=== PATIENT | male | born 1985 | race Two or more races ===

== ENCOUNTER 2020-01-19 01:07 | Inpatient (IN) ==
[2020-01-19] MEDS ORDERED: NS 1000 ML 1,000 ML ONE (01:20)
--- NOTE | 2020-01-19 01:28 | DR.GENAD ---
HPI Time Seen Time Seen by Provider: 01/19/20 01:23 HPI Comment HPI Comment: 34 y/o speaking little to no Egyptian with h/o obtained through pantomime mostly reports sudden onset of n/v/chest pain earlier today with fever; no diarrhea, cough, sob; last etoh Wednesday but unable to establish how often he drinks or how much; occasional pill for headache but no other meds; no cigarettes. ROS Review of Systems Constitutional: See HPI and Weakness Respiratoy: No Symptoms Reported Cardiovascular: See HPI Gastrointestinal/Abdominal: See HPI Genitourinary: No Symptoms Reported Neurological: No Symptoms Reported Musculoskeletal: No Symptoms Reported Integumentary: No Symptoms Reported Hematologic/Lymphatic: No Symptoms Reported Endocrine: No Symptoms Reported PE Vital Signs Vitals: Temperature 98.4 F Pulse Rate 70 Respiratory Rate 20 Blood Pressure 136/76 O2 Sat by Pulse Oximetry 98 General Limitations: Language Barrier General Appearance: Alert and In No Apparent Distress Head Head Exam: Normal Inspection, Atraumatic and Normocephalic Eyes Eye exam: Normal Appearance, PERRL, EOMI and Scleral Icterus ENT ENT Exam: Normal Exam Neck Neck Exam: Normal Inspection, Full ROM and Trachea Midline Chest Chest Inspection: Normal Inspection and Symmetric Chest Wall Rise Respiratory Respiratory Exam: Normal Lung Sounds Bilat Cardiovascular Cardiovascular Exam: Regular Rate and Normal Rhythm Abdominal Exam Abdominal Exam: Normal Inspection, Normal Bowel Sounds, Soft and Tenderness Abdominal Tenderness: Epigastrium Extremities Extremities Exam: Normal Inspection and Full ROM Neurologic Neurological Exam: Alert, Oriented X3 and CN II-XII Intact Psychiatric Psychiatric Exam: Normal Affect and Normal Mood Skin Skin Exam: Warm COURSE Treatment Treatment: [address] Mehta ROR Labs Reviewed Laboratory Results Reviewed?: Yes Result Diagrams: 01/21/20 04:18 01/21/20 04:18 Laboratory: WBC 8.8 X10^3/uL (3.6-10.0) 01/19/20 01:30 RBC 3.50 X10^6/uL (4.7-6.0) L 01/19/20 01:30 Hgb 11.6 g/dL (13.5-18.0) L 01/19/20 01:30 Hct 33.3 % (42.0-54.0) L 01/19/20 01:30 MCV 95.1 fL (80.0-100.0) 01/19/20 01:30 MCH 33.1 pg (27.0-34.0) 01/19/20 01:30 MCHC 34.8 g/dL (33.0-35.0) 01/19/20 01:30 RDW 14.4 % (11.6-16.5) 01/19/20 01:30 Plt Count 69 X10^3/uL (150.0-450.0) L 01/19/20 01:30 MPV 9.4 fL (7.4-11.0) 01/19/20 01:30 Neut % (Auto) 77.2 % (42.0-75.0) H 01/19/20 01:30 Lymph % (Auto) 14.5 % (21.0-51.0) L 01/19/20 01:30 [place] % (Auto) 6.8 % (0.0-13.0) 01/19/20 01:30 Eos % (Auto) 0.8 % (0.9-2.9) L 01/19/20 01:30 Baso % (Auto) 0.7 % (0.2-1.0) 01/19/20 01:30 Neut # (Auto) 6.8 x10^3/uL (2.2-4.8) H 01/19/20 01:30 Lymph # (Auto) 1.3 X10^3/uL (1.3-2.9) 01/19/20 01:30 [place] # (Auto) 0.6 x10^3/uL (0.3-0.8) 01/19/20 01:30 Eos # (Auto) 0.1 x10^3/uL (0.0-0.2) 01/19/20 01:30 Baso # (Auto) 0.1 X10^3/uL (0.0-0.1) 01/19/20 01:30 Absolute Nucleated RBC 0.0 /100WBC 01/19/20 01:30 Sodium 135 mmol/L (136-145) L 01/19/20 01:30 Corrected Sodium 135 mmol/L (136-145) L 01/19/20 01:30 Potassium 3.1 mmol/L (3.5-5.1) L 01/19/20 01:30 Chloride 97 mmol/L (98-107) L 01/19/20 01:30 Carbon Dioxide 28.5 mmol/L (21-32) 01/19/20 01:30 BUN 7 mg/dL (7-18) 01/19/20 01:30 Creatinine 0.98 mg/dL (0.70-1.30) 01/19/20 01:30 Est GFR (MDRD) Af Amer > 60 (>60) 01/19/20 01:30 Est GFR (MDRD) Non-Af > 60 (>60) 01/19/20 01:30 Glucose 111 mg/dL (65-99) H 01/19/20 01:30 Calcium 8.3 mg/dL (8.5-10.1) L 01/19/20 01:30 Corrected Calcium 9.3 mg/dL (8.5-10.1) 01/19/20 01:30 Total Bilirubin 7.30 mg/dL (0.2-1.0) H 01/19/20 01:30 AST 121 Units/L (15-37) H 01/19/20 01:30 ALT 63 Units/L (12-78) 01/19/20 01:30 Alkaline Phosphatase 341 Units/L (46-116) H 01/19/20 01:30 Creatine Kinase 130 Units/L (39-308) 01/19/20 01:30 CK-MB (CK-2) 1.0 ng/mL (0-4.0) 01/19/20 01:30 CK/CKMB % Calc 0.8 % (<4) 01/19/20 01:30 Troponin I < 0.02 ng/mL (0-1.5) 01/19/20 01:30 Total Protein 6.9 g/dL (6.4-8.2) 01/19/20 01:30 Albumin 2.7 g/dL (3.4-5.0) L 01/19/20 01:30 Globulin 4.2 g/dL (2.5-4.5) 01/19/20 01:30 Albumin/Globulin Ratio 0.6 Ratio (1.1-2.1) L 01/19/20 01:30 Amylase 79 Units/L (25-115) 01/19/20 01:30 Lipase 804 Units/L (73-393) H 01/19/20 01:30 Specimen Type Clean catch urine 01/19/20 08:05 Urine Color Yellow (YELLOW) 01/19/20 08:05 Urine Appearance Clear (CLEAR) 01/19/20 08:05 Urine pH 8.0 (5.0 - 8.0) 01/19/20 08:05 Ur Specific [place] 1.010 (1.000-1.030) 01/19/20 08:05 Urine Protein Negative (NEGATIVE) 01/19/20 08:05 Urine Glucose (UA) Negative (NEGATIVE) 01/19/20 08:05 Urine Ketones Negative (NEGATIVE) 01/19/20 08:05 Urine Occult Blood Negative (NEGATIVE) 01/19/20 08:05 Urine Nitrite Negative (NEGATIVE) 01/19/20 08:05 Urine Bilirubin Negative (NEGATIVE) 01/19/20 08:05 Urine Urobilinogen Normal (NORMAL) 01/19/20 08:05 Ur Leukocyte Esterase Negative (NEGATIVE) 01/19/20 08:05 Urine Opiates Screen Negative (NEG=<300) 01/19/20 07:58 Urine Methadone Screen Negative (NEG=<300) 01/19/20 07:58 Ur Barbiturates Screen Negative (NEG=<200) 01/19/20 07:58 Ur Phencyclidine Scrn Negative (NEG=<25) 01/19/20 07:58 Ur Amphetamines Screen Negative (NEG=<1000) 01/19/20 07:58 U Benzodiazepines Scrn Negative (NEG=<200) 01/19/20 07:58 Urine Cocaine Screen Negative (NEG=<300) 01/19/20 07:58 U Marijuana (THC) Screen Negative (NEG=<50) 01/19/20 07:58 Ethyl Alcohol mg/dL < 3 mg/dL (0-19.9) 01/19/20 01:30 Influenza Type A (PCR) Negative (NEGATIVE) 01/19/20 01:46 Influenza Type B (PCR) Negative (NEGATIVE) 01/19/20 01:46 S. pyogenes (TEM-PCR) Not detected (NOT DETECT) 01/19/20 01:46 XRAY XRAY Interpreted by: Radiologist X-ray Results: CXR: Vague tree-in-bud opacity seen in the right upper lung are not well visualized on radiography. Infection is not entirely excluded. Correlate clinically. CT ABD: Gallbladder thick-walled, concerning for cholecystitis; recommend us 2. enlarged liver with hepatic steatosis 3. distended urinary bladder Opioid Opioid Risk Tool Total: 0 Total Score Risk Category: Low Risk Copyright: Benjamín ESCAMILLA predicting aberrant behaviors Diagnosis Discharge Problem: Hypokalemia, Fatty liver, Hepatomegaly, Acute cholecystitis Pancreatitis Qualifiers: Chronicity: acute Pancreatitis type: alcohol induced Acute pancreatitis complication: no infection or necrosis Qualified Code(s): K85.20 - Alcohol induced acute pancreatitis without necrosis or infection Hematemesis Qualifiers: Nausea presence: with nausea Qualified Code(s): K92.0 - Hematemesis Instructions Instructions: Hypokalemia Acute Pancreatitis, [id number] Cholecystitis, [id number] Forms: Excuse From Work Precautions for COVID19 Patient Portal Social Distancing
[2020-01-19] MEDS ORDERED: NS 1000 ML 1,000 ML IV ONE (01:31)
[2020-01-19 01:43] LABS: BASOPHILS # (AUTO) 0.1 X10^3/uL (0.0-0.1); BASOPHILS % (AUTO) 0.7 % (0.2-1.0); EOSINOPHILS # (AUTO) 0.1 x10^3/uL (0.0-0.2); EOSINOPHILS % (AUTO) 0.8 % (0.9-2.9); HEMATOCRIT 33.3 % (42.0-54.0); HEMOGLOBIN 11.6 g/dL (13.5-18.0); LYMPHOCYTES # (AUTO) 1.3 X10^3/uL (1.3-2.9); LYMPHOCYTES % (AUTO) 14.5 % (21.0-51.0); MEAN CORPUSCULAR HEMOGLOBIN 33.1 pg (27.0-34.0); MEAN CORPUSCULAR HGB CONC 34.8 g/dL (33.0-35.0); MEAN CORPUSCULAR VOLUME 95.1 fL (80.0-100.0); MEAN PLATELET VOLUME 9.4 fL (7.4-11.0); MONOCYTES # (AUTO) 0.6 x10^3/uL (0.3-0.8); MONOCYTES % (AUTO) 6.8 % (0.0-13.0); NEUTROPHILS # (AUTO) 6.8 x10^3/uL (2.2-4.8); NEUTROPHILS % (AUTO) 77.2 % (42.0-75.0); PLATELET COUNT 69 X10^3/uL (150.0-450.0); RED CELL DISTRIBUTION WIDTH 14.4 % (11.6-16.5); WHITE BLOOD COUNT 8.8 X10^3/uL (3.6-10.0)
[2020-01-19 01:54] LABS: BLOOD UREA NITROGEN 7 mg/dL (7-18); CALCIUM 8.3 mg/dL (8.5-10.1); CARBON DIOXIDE 28.5 mmol/L (21-32); CHLORIDE 97 mmol/L (98-107); COR NA(FOR HYPERGLY) 135 mmol/L (136-145); CREATININE 0.98 mg/dL (0.70-1.30); SODIUM 135 mmol/L (136-145); TROPONIN I < 0.02 ng/mL (0-1.5); eGFR NON BLACK RACES > 60 (>60)
[2020-01-19 01:57] LABS: ALANINE AMINOTRANSFERASE 63 Units/L (12-78); ALBUMIN 2.7 g/dL (3.4-5.0); ALKALINE PHOSPHATASE 341 Units/L (46-116); AMYLASE 79 Units/L (25-115); ASPARTATE AMINO TRANSFERASE 121 Units/L (15-37); CKMB % 0.8 % (<4); COR CA(FOR HYPOALB) 9.3 mg/dL (8.5-10.1); CREATINE KINASE 130 Units/L (39-308); LIPASE 804 Units/L (73-393); TOTAL PROTEIN 6.9 g/dL (6.4-8.2)
[2020-01-19 02:24] LABS: STREP A BY PCR NOT DETECTED (NOT DETECT)
[2020-01-19] MEDS ORDERED: K-RIDER 10 MEQ/NS 100 ML 10 MEQ/100 ML BAG IV ONE (02:58)
[2020-01-19] MEDS ORDERED: ZOFRAN INJ 4 MG VIAL IV ONE (03:20)
[2020-01-19] MEDS ORDERED: MORPHINE SULFATE INJ 2 MG INJ IV ONE (03:20)
[2020-01-19] MEDS ORDERED: MORPHINE SULFATE INJ 2 MG INJ ONE (03:25)
[2020-01-19] MEDS ORDERED: ZOFRAN INJ 4 MG VIAL ONE (03:25)
[2020-01-19] MEDS ORDERED: NS + KCL 20 MEQ/L 1,000 ML IV STA (04:51)
[2020-01-19] MEDS ORDERED: NS + KCL 20 MEQ/L 1,000 ML IV ONE (05:32)
--- NOTE | 2020-01-19 05:46 | RAD ---
Chest AP portableIndication: Chest painCOMPARISONCT abdomen and pelvis from the same dayFINDINGSThere is no pneumothorax or dense consolidation. No effusion seen. Heart size is normal.IMPRESSIONVague tree-in-bud opacity seen in the right upper lung are not well visualized on radiography. Infection is not entirely excluded. Correlate clinically.Electronically signed by: STORMY PARHAM (Jan 19, 2020 05:44:48)
[2020-01-19 08:10] LABS: BILIRUBIN,URINE NEGATIVE (NEGATIVE); BLOOD/HEMOGLOBIN,URINE NEGATIVE (NEGATIVE); GLUCOSE, URINE NEGATIVE (NEGATIVE); KETONES,URINE NEGATIVE (NEGATIVE); LEUKOCYTE ESTERASE ,URINE NEGATIVE (NEGATIVE); NITRITES,URINE NEGATIVE (NEGATIVE); PROTEIN,URINE NEGATIVE (NEGATIVE); UROBILINOGEN,URINE NORMAL (NORMAL)
[2020-01-19 08:15] LABS: APPEARANCE,URINE CLEAR (CLEAR); COLOR,URINE YELLOW (YELLOW)
--- NOTE | 2020-01-19 08:24 | CT ---
HISTORYAbnormal chest x-ray, cholecystitisSTUDYCT OF THE CHEST WITH CONTRASTCOMPARISONChest x-ray portable January 19, 2020, January 19, [address] abdomen [address] pelvisTECHNIQUEAxial CT was performed from the thoracic inlet to the upper abdomen with IV contrast. The axial sequences are reconstructed with multiplaner reformats.FINDINGSThe lungs are equally expanded. There are no consolidating infiltrates. Within the right upper lobe, there are clustered subcentimeter tree-in-bud inflammatory nodular opacities. 4 mm calcified granuloma is present within the right middle lobe. The pleural spaces remain clear. Heart size is normal. There is no pericardial effusion identified. There are no enlarged mediastinal, hilar, or axillary lymph nodes of the chest. Thoracic aorta caliber is normal. There are no central filling defects associated with the main pulmonary artery, lobar or proximal segmental pulmonary artery branches.The liver is enlarged and diffusely hypoattenuated relative to the spleen consistent with hepatic steatosis. Again, the gallbladder wall appears mildly thickened. No free fluid is identified.Review of bone windows demonstrates no acute osseous abnormalities or aggressive bony lesions.IMPRESSIONClustered inflammatory tree-in-bud nodules of the right upper lobe, typical of bronchiolitis which may be related to isolated small airways inflammation or associated with viral/atypical organism infectionHepatomegaly with diffuse hepatic steatosis.Mild gallbladder wall thickening, for which cholecystitis cannot be excluded. Alternatively, secondary gallbladder wall thickening due to hepatitis is also a consideration. Correlation with clinical presentation, liver function tests, and targeted ultrasound suggested in follow-up.Old granulomatous disease of the chest.Radiation dose reduction was achieved through individualized adjustment of kVP and/or mA, through adaptive statistical iterative reconstruction, and/or through automated tube current modulation.Electronically signed by: CORNELIUS DOMINGUEZ (Jan 19, 2020 08:22:50)
--- NOTE | 2020-01-19 10:19 | DR.GENAD ---
HPI Time Seen Time Seen by Provider: 01/19/20 01:23 PCP Primary Care Physician: ZE HPI Comment HPI Comment: H&P PER DR. MEDELLIN. Complaint/Symptoms Chief Complaint:: PT C/O SORE THROAT AND N/V WITH EPIGASTRIC PAIN. PT'S EYES ARE JAUNDICE COVID-19 Coronavirus risk:travel/contact w/high risk person: No Has patient experienced Coronavirus symptoms: No Source History Provided: Patient Mode of Arrival Mode of Arrival: EMS Timing Onset of Chief Complaint: 01/18/20 PMH PMH Past Medical History: No Past Surgical History: No Family History History of Family Medical Conditions: No Social History Does any household member use tobacco: No Alcohol Use: Occasionally Do you use any recreational Drugs:: No Lives With: Family Lives Where: Home Travel Risk Coronavirus risk:travel/contact w/high risk person: No Has patient experienced Coronavirus symptoms: No Infectious screening In the last 2 months have you had wt loss of >10#?: NO Have you had fever, night sweats or hemotysis?: No Have you traveled outside the country in the last 6 months?: No Isolation: Droplet PE Vital Signs Vitals: Temperature 98.4 F Pulse Rate 70 Respiratory Rate 20 Blood Pressure 136/76 O2 Sat by Pulse Oximetry 98 MDM Differential Diagnosis Differential Diagnosis: PACREATITIS, HEMATEMESIS, CHOLECYSTITIS, DEHYDRATION, ELETROLYTE IMBALANCE, COURSE Treatment Treatment: SEE ORDERS. PATIENT SIGN OUT TO ME, DR ROA AT 08:05AM. Consultation Consultation Comments: DISCUSSED PATIENT WITH DR. NOVAK, HE WILL ADMIT PATIENT. Education/Counseling Education/Counseling: Patient Educated On: Diagnosis ROR Labs Reviewed Laboratory Results Reviewed?: Yes Result Diagrams: 01/19/20 01:30 01/19/20 01:30 Laboratory: WBC 8.8 X10^3/uL (3.6-10.0) 01/19/20 01:30 RBC 3.50 X10^6/uL (4.7-6.0) L 01/19/20 01:30 Hgb 11.6 g/dL (13.5-18.0) L 01/19/20 01:30 Hct 33.3 % (42.0-54.0) L 01/19/20 01:30 MCV 95.1 fL (80.0-100.0) 01/19/20 01:30 MCH 33.1 pg (27.0-34.0) 01/19/20 01:30 MCHC 34.8 g/dL (33.0-35.0) 01/19/20 01:30 RDW 14.4 % (11.6-16.5) 01/19/20 01:30 Plt Count 69 X10^3/uL (150.0-450.0) L 01/19/20 01:30 MPV 9.4 fL (7.4-11.0) 01/19/20 01:30 Neut % (Auto) 77.2 % (42.0-75.0) H 01/19/20 01:30 Lymph % (Auto) 14.5 % (21.0-51.0) L 01/19/20 01:30 [place] % (Auto) 6.8 % (0.0-13.0) 01/19/20 01:30 Eos % (Auto) 0.8 % (0.9-2.9) L 01/19/20 01:30 Baso % (Auto) 0.7 % (0.2-1.0) 01/19/20 01:30 Neut # (Auto) 6.8 x10^3/uL (2.2-4.8) H 01/19/20 01:30 Lymph # (Auto) 1.3 X10^3/uL (1.3-2.9) 01/19/20 01:30 [place] # (Auto) 0.6 x10^3/uL (0.3-0.8) 01/19/20 01:30 Eos # (Auto) 0.1 x10^3/uL (0.0-0.2) 01/19/20 01:30 Baso # (Auto) 0.1 X10^3/uL (0.0-0.1) 01/19/20 01:30 Absolute Nucleated RBC 0.0 /100WBC 01/19/20 01:30 Sodium 135 mmol/L (136-145) L 01/19/20 01:30 Corrected Sodium 135 mmol/L (136-145) L 01/19/20 01:30 Potassium 3.1 mmol/L (3.5-5.1) L 01/19/20 01:30 Chloride 97 mmol/L (98-107) L 01/19/20 01:30 Carbon Dioxide 28.5 mmol/L (21-32) 01/19/20 01:30 BUN 7 mg/dL (7-18) 01/19/20 01:30 Creatinine 0.98 mg/dL (0.70-1.30) 01/19/20 01:30 Est GFR (MDRD) Af Amer > 60 (>60) 01/19/20 01:30 Est GFR (MDRD) Non-Af > 60 (>60) 01/19/20 01:30 Glucose 111 mg/dL (65-99) H 01/19/20 01:30 Calcium 8.3 mg/dL (8.5-10.1) L 01/19/20 01:30 Corrected Calcium 9.3 mg/dL (8.5-10.1) 01/19/20 01:30 Total Bilirubin 7.30 mg/dL (0.2-1.0) H 01/19/20 01:30 AST 121 Units/L (15-37) H 01/19/20 01:30 ALT 63 Units/L (12-78) 01/19/20 01:30 Alkaline Phosphatase 341 Units/L (46-116) H 01/19/20 01:30 Creatine Kinase 130 Units/L (39-308) 01/19/20 01:30 CK-MB (CK-2) 1.0 ng/mL (0-4.0) 01/19/20 01:30 CK/CKMB % Calc 0.8 % (<4) 01/19/20 01:30 Troponin I < 0.02 ng/mL (0-1.5) 01/19/20 01:30 Total Protein 6.9 g/dL (6.4-8.2) 01/19/20 01:30 Albumin 2.7 g/dL (3.4-5.0) L 01/19/20 01:30 Globulin 4.2 g/dL (2.5-4.5) 01/19/20 01:30 Albumin/Globulin Ratio 0.6 Ratio (1.1-2.1) L 01/19/20 01:30 Amylase 79 Units/L (25-115) 01/19/20 01:30 Lipase 804 Units/L (73-393) H 01/19/20 01:30 Specimen Type Clean catch urine 01/19/20 08:05 Urine Color Yellow (YELLOW) 01/19/20 08:05 Urine Appearance Clear (CLEAR) 01/19/20 08:05 Urine pH 8.0 (5.0 - 8.0) 01/19/20 08:05 Ur Specific [place] 1.010 (1.000-1.030) 01/19/20 08:05 Urine Protein Negative (NEGATIVE) 01/19/20 08:05 Urine Glucose (UA) Negative (NEGATIVE) 01/19/20 08:05 Urine Ketones Negative (NEGATIVE) 01/19/20 08:05 Urine Occult Blood Negative (NEGATIVE) 01/19/20 08:05 Urine Nitrite Negative (NEGATIVE) 01/19/20 08:05 Urine Bilirubin Negative (NEGATIVE) 01/19/20 08:05 Urine Urobilinogen Normal (NORMAL) 01/19/20 08:05 Ur Leukocyte Esterase Negative (NEGATIVE) 01/19/20 08:05 Urine Opiates Screen Negative (NEG=<300) 01/19/20 07:58 Urine Methadone Screen Negative (NEG=<300) 01/19/20 07:58 Ur Barbiturates Screen Negative (NEG=<200) 01/19/20 07:58 Ur Phencyclidine Scrn Negative (NEG=<25) 01/19/20 07:58 Ur Amphetamines Screen Negative (NEG=<1000) 01/19/20 07:58 U Benzodiazepines Scrn Negative (NEG=<200) 01/19/20 07:58 Urine Cocaine Screen Negative (NEG=<300) 01/19/20 07:58 U Marijuana (THC) Screen Negative (NEG=<50) 01/19/20 07:58 Influenza Type A (PCR) Negative (NEGATIVE) 01/19/20 01:46 Influenza Type B (PCR) Negative (NEGATIVE) 01/19/20 01:46 S. pyogenes (TEM-PCR) Not detected (NOT DETECT) 01/19/20 01:46 XRAY XRAY Interpreted by: Radiologist (REPORT NOTED AND DISCUSSED WITH PATIENT VIA MANAGER TELEMARKETING.) EKG Rate: 68 [place]: Normal Rhythm: NSR Block: IVCD Hypertrophy: None ST: Normal Opioid Opioid Risk Tool Age (Ramone box if 16-45): Yes Total: 1 Total Score Risk Category: Low Risk Copyright: Benjamín ESCAMILLA predicting aberrant behaviors Diagnosis Discharge Problem: Hypokalemia, Fatty liver, Hepatomegaly, Acute cholecystitis Pancreatitis Qualifiers: Chronicity: acute Pancreatitis type: alcohol induced Acute pancreatitis complication: no infection or necrosis Qualified Code(s): K85.20 - Alcohol ind uced acute pancreatitis without necrosis or infection Hematemesis Qualifiers: Nausea presence: with nausea Qualified Code(s): K92.0 - Hematemesis Instructions Instructions: Hypokalemia Acute Pancreatitis, Wrcl-[id number] Cholecystitis, Lqcc-yc-[id number] Forms: Excuse From Work Precautions for COVID19 Patient Portal Social Distancing
[2020-01-19] MEDS ORDERED: LIBRIUM PO ONE (10:57)
[2020-01-19] MEDS ORDERED: PROTONIX INJ 40 MG VIAL ONE (10:58)
[2020-01-19] MEDS ORDERED: NS 100 ML IV 100 ML IV ONE (10:59)
[2020-01-19] MEDS: PROTONIX INJ 40 MG VIAL 80 MG in NS 100 ML IV 80 ML IV SCH ×3 (11:12→20:52)
--- NOTE | 2020-01-19 12:32 | US ---
HISTORYRUQ PAIN. EPIGASTRIC PAIN WITH N/V, JAUNDICE. Abdominal pain.Study: Right upper quadrant abdominal ultrasoundComparison: None available.Technique: Multiple workman scale and color flow Doppler images of the right upper quadrant were obtained.Findings:The liver is echogenic/fatty in appearance. No focal intraparenchymal mass or intrahepatic biliary ductal dilatation can be observed. [The gallbladder fails to demonstrate evidence for cholelithiasis or layering sludge]. The common bile duct is unremarkable measuring [2 mm]. [No pericholecystic fluid or gallbladder wall thickening can be observed]. The CBD measures [within normal limits]. There is appropriate vascular flow seen in the portal vein, hepatic artery, and visualized hepatic veins. The right kidney appears normal in size without focal parenchymal mass or nephrolithiasis. The right kidney measurers [10 x 5 cm]. No hydronephrosis or perirenal fluid can be observed. The [pancreatic head and body are unremarkable. The pancreatic tail] is largely obscured by overlying bowel gas. No other right upper quadrant sonographic abnormalities are identified on this exam.IMPRESSION:Liver is diffusely fatty/echogenic appearance, compatible with hepatic steatosis.Unremarkable gallbladder. No other RUQ sonographic abnormalities are observed.Electronically signed by: MARKUS LOVE III (Jan 19, 2020 12:31:32)
[2020-01-19] MEDS ORDERED: ZOFRAN INJ 4 MG VIAL IVP PRN (14:10)
[2020-01-19] MEDS ORDERED: PROTONIX INJ 40 MG VIAL 80 MG in NS 100 ML IV 80 ML IV SCH (14:10)
[2020-01-19] MEDS ORDERED: D5W 1000 ML IV 1,000 ML IV ONE (16:14)
[2020-01-19] MEDS: LIBRIUM PO SCH ×2 (16:24→21:20)
[2020-01-19] MEDS: D5W 1000 ML IV 1,000 ML IV SCH (16:25)
[2020-01-19] MEDS ORDERED: MICRO K EXTEN CAP 10 MEQ PO PRN (21:34)
[2020-01-19] MEDS ORDERED: K-DUR TAB 20 MEQ PO PRN (21:34)
[2020-01-19] MEDS ORDERED: POTASSIUM CHLORIDE LIQ 20 MEQ UDC PO PRN (21:34)
[2020-01-19] MEDS ORDERED: POTASSIUM CHL 40 MEQ/NS 0.45% 500 ML IV PRN (21:34)
[2020-01-19] MEDS ORDERED: POTASSIUM CHL 60 MEQ/NS 0.45% 500 ML IV PRN (21:34)
[2020-01-19] MEDS ORDERED: KLOR-CON PO PRN (21:34)
[2020-01-19] MEDS: MAGNESIUM SULFATE 1 GRAM/100 mL PREMIX 1 GM/100 ML BAG IV PRN ×2 (22:40→23:50)
[2020-01-20] MEDS: K-RIDER 10 MEQ/NS 100 ML 10 MEQ/100 ML BAG IV PRN ×6 (00:55→06:00)
[2020-01-20] MEDS: D5W 1000 ML IV 1,000 ML IV SCH ×4 (01:05→16:53)
[2020-01-20] MEDS: PROTONIX INJ 40 MG VIAL 80 MG in NS 100 ML IV 80 ML IV SCH ×2 (05:59→16:53)
[2020-01-20] MEDS: LIBRIUM PO SCH ×3 (06:00→21:20)
[2020-01-20 06:24] LABS: BASOPHILS % (AUTO) 0.9 % (0.2-1.0); EOSINOPHILS # (AUTO) 0.1 x10^3/uL (0.0-0.2); EOSINOPHILS % (AUTO) 1.1 % (0.9-2.9); HEMATOCRIT 32.9 % (42.0-54.0); HEMOGLOBIN 11.5 g/dL (13.5-18.0); LYMPHOCYTES # (AUTO) 1.2 X10^3/uL (1.3-2.9); LYMPHOCYTES % (AUTO) 25.3 % (21.0-51.0); MEAN CORPUSCULAR HEMOGLOBIN 33.5 pg (27.0-34.0); MEAN CORPUSCULAR HGB CONC 34.8 g/dL (33.0-35.0); MEAN CORPUSCULAR VOLUME 96.1 fL (80.0-100.0); MEAN PLATELET VOLUME 8.7 fL (7.4-11.0); MONOCYTES # (AUTO) 0.5 x10^3/uL (0.3-0.8); NEUTROPHILS # (AUTO) 3.1 x10^3/uL (2.2-4.8); NEUTROPHILS % (AUTO) 62.7 % (42.0-75.0); PLATELET COUNT 86 X10^3/uL (150.0-450.0); RED BLOOD COUNT 3.42 X10^6/uL (4.7-6.0); RED CELL DISTRIBUTION WIDTH 13.9 % (11.6-16.5); WHITE BLOOD COUNT 4.9 X10^3/uL (3.6-10.0)
[2020-01-20 06:53] LABS: ALANINE AMINOTRANSFERASE 51 Units/L (12-78); ALBUMIN 2.5 g/dL (3.4-5.0); ALKALINE PHOSPHATASE 216 Units/L (46-116); AMYLASE 66 Units/L (25-115); ASPARTATE AMINO TRANSFERASE 94 Units/L (15-37); BLOOD UREA NITROGEN 4 mg/dL (7-18); CALCIUM 8.3 mg/dL (8.5-10.1); CARBON DIOXIDE 24.9 mmol/L (21-32); CHLORIDE 103 mmol/L (98-107); COR CA(FOR HYPOALB) 9.5 mg/dL (8.5-10.1); CREATININE 0.86 mg/dL (0.70-1.30); LIPASE 414 Units/L (73-393); MAGNESIUM 2.8 mg/dL (1.7-2.9); SODIUM 136 mmol/L (136-145); TOTAL PROTEIN 6.8 g/dL (6.4-8.2); eGFR NON BLACK RACES > 60 (>60)
--- NOTE | 2020-01-20 12:29 | DR.H&P ---
H&P - History & Physical for Day of: H&P Date: 01/19/20 - Chief Complaint Chief Complaint: N/V ABDOMINAL PAIN - History of Present Illness History of Present Illness: PT IS 34 MALE, LOCAL [employer], PRESENTED TO ER WITH CO SUDDEN ONSET OF N/V AND ABDOMINAL PAIN. PT STATES HE HAS NOT BEEN ABLE TO EAT SINCE WEDNESDAY. PT REPORT DRINKING BEER LAST ON WEDNESDAY. PT DENIES ANY KNOWN HISTORY OF LIVER DISEASE. PT HAD ELEVATED BILIRUBIN AND AMYLASE AND LIPASE ON ADMISSION. PT HAD COVID19 SWAB IN ER, ADMITTED FOR TREATMENT OF ACUTE PACREATITIS, CHOLEYCYSTITS, DEHYDRATION. PT PLACE IN ISOLATION [place]. - Past Medical History Past Medical History: denies: Coronary Artery Disease, Diabetes, Hypertension - Past Surgical History Surgical History: No History - Social History Does patient currently use any type of tobacco product: No Have you used tobacco products in the last 12 months: No Type of Tobacco Use: None Does any household member use tobacco: No Alcohol Use: Heavy, DAILY Drug Use: None - Medications Home Medications: No Known Allergies Allergy (Verified 01/19/20 01:30) CONTINUE taking the following medications NK 01/19/20 [History] - Review of Systems Constitutional: Weakness Eyes: No Symptoms Reported ENT: No Symptoms Reported Respiratory: No Symptoms Reported Cardiovascular: No Symptoms Reported Gastrointestinal: Nausea, Vomiting, Abdominal Pain Genitourinary: No Symptoms Reported Musculoskeletal: No Symptoms Reported Skin: No Symptoms Reported Neurological: No Symptoms Reported - Physical Exam Vital Signs: Temperature 97.9 F Pulse Rate [Right Brachial] 64 Pulse Rate 70 Respiratory Rate 20 Blood Pressure [Left Arm] 135/62 Blood Pressure 136/76 O2 Sat by Pulse Oximetry 99 Oriented: Normal Eyes: Normal Nose: Normal Throat: Normal Respiratory: RLL Diminished, LLL Diminished Cardiovascular: Normal : Normal Auscultation: Bowel Sounds: Normal Palpation: Normal Tenderness: RUQ, LUQ, Epigastric Skin: Normal, Rash (HYPERPIGMENTED MACULAR RASH TO BILATERAL CHEEKS AND NASAL BRIDGE) Psychiatric: Normal Mood Description: Calm Speech Pattern: Clear, Appropriate - Assessment/Plan (1) Pancreatitis Qualifiers: Chronicity: acute Pancreatitis type: alcohol induced Acute pancreatitis complication: no infection or necrosis Qualified Code(s): K85.20 - Alcohol induced acute pancreatitis without necrosis or infection Status: Acute Plan: ADMIT, NPO. GENTLE IV HYDRATION, PAIN AND NAUSEA CONTROL. ADMISSION LABS, REPEAT AM AMYLASE AND LIPASE. CT CHEST/ABD AND PELVIS ON ADMISSION. GB US, COVID 19 COLLECTED IN ER ON ADMISSION (2) Acute cholecystitis Status: Acute (3) Fatty liver Status: Acute (4) Hematemesis Qualifiers: Nausea presence: with nausea Qualified Code(s): K92.0 - Hematemesis Status: Acute (5) Hepatomegaly Status: Acute (6) Hypokalemia Status: Acute - Allergies Allergies/Adverse Reactions: Allergies Allergy/AdvReac Type Severity Reaction Status Date / Time No Known Allergies Allergy Verified 01/19/20 01:30
--- NOTE | 2020-01-20 12:35 | PCM.PROG ---
Progress Note - Progress Note for Day of Date of Exam: 01/20/20 - Subjective Subjective: 34 HM ER ADMISSION WITH ABDOMINAL PAIN, N/V, ACUTE PANCREATITIS, POSSIBLE CHOLECYSTITIS. PT IS CURRENTLY IN [place]ATION [place] DUE TO PENDING COVID 19. PT IS LOCAL [employer] LIVING IN HOUSING, UNSURE OF KNOWN PICKARD VIRUS EXPOSURE. PT HAD GB US, WITHOUT GALLSTONES. PT AMYLASE NORMAL, LIPASE IMPROVING. BILI 6.6 THIS AM. PLAN TO CONTINUE NPO WITH GENTLE IV HYDRATION, K NORMAL ON CMP. PT DENIES ANY ABDOMINAL PAIN THIS AM, NO N/V. HEPATITIS PANEL ORDERED. - Past Medical Family Social History Past Med/Fam/Surg Hx: No changes since H&P Allergies: Allergies No Known Allergies Allergy (Verified 01/19/20 01:30) - Review of Systems ROS: No change since H&P - Vital Signs and I&O's Vital Signs: Temperature 97.9 F Pulse Rate [Right Brachial] 64 Pulse Rate 70 Respiratory Rate 20 Blood Pressure [Left Arm] 135/62 Blood Pressure 136/76 O2 Sat by Pulse Oximetry 99 Intake and Output: Intake & Output 01/18/20 01/19/20 01/20/20 01/21/20 11:59 11:59 11:59 11:59 Intake Total 2718 / 2718 Output Total 700 / 700 2400 / 2400 Balance -700 / -700 318 / 318 - Physical Exam Oriented: Normal Eyes: Normal Nose: Normal Throat: Normal Cardiovascular: Normal : Normal Auscultation: Bowel Sounds: Normal Tenderness: Epigastric, Mild Skin: Normal, Rash (HYPERPIGMENTED MACULAR RASH TO BILATERAL CHEEKS AND NASAL BRIDGE) Psychiatric: Normal Mood Description: Calm Speech Pattern: Clear, Appropriate - Laboratory and Diagnostics Result Diagrams: 01/20/20 04:56 01/20/20 04:56 Labs: Laboratory WBC 4.9 X10^3/uL (3.6-10.0) 01/20/20 04:56 RBC 3.42 X10^6/uL (4.7-6.0) L 01/20/20 04:56 Hgb 11.5 g/dL (13.5-18.0) L 01/20/20 04:56 Hct 32.9 % (42.0-54.0) L 01/20/20 04:56 MCV 96.1 fL (80.0-100.0) 01/20/20 04:56 MCH 33.5 pg (27.0-34.0) 01/20/20 04:56 MCHC 34.8 g/dL (33.0-35.0) 01/20/20 04:56 RDW 13.9 % (11.6-16.5) 01/20/20 04:56 Plt Count 86 X10^3/uL (150.0-450.0) L 01/20/20 04:56 MPV 8.7 fL (7.4-11.0) 01/20/20 04:56 Neut % (Auto) 62.7 % (42.0-75.0) 01/20/20 04:56 Lymph % (Auto) 25.3 % (21.0-51.0) 01/20/20 04:56 [place] % (Auto) 10.0 % (0.0-13.0) 01/20/20 04:56 Eos % (Auto) 1.1 % (0.9-2.9) 01/20/20 04:56 Baso % (Auto) 0.9 % (0.2-1.0) 01/20/20 04:56 Neut # (Auto) 3.1 x10^3/uL (2.2-4.8) 01/20/20 04:56 Lymph # (Auto) 1.2 X10^3/uL (1.3-2.9) L 01/20/20 04:56 [place] # (Auto) 0.5 x10^3/uL (0.3-0.8) 01/20/20 04:56 Eos # (Auto) 0.1 x10^3/uL (0.0-0.2) 01/20/20 04:56 Baso # (Auto) 0.0 X10^3/uL (0.0-0.1) 01/20/20 04:56 Absolute Nucleated RBC 0.1 /100WBC 01/20/20 04:56 Sodium 136 mmol/L (136-145) 01/20/20 04:56 Corrected Sodium TNP 01/20/20 04:56 Potassium 4.0 mmol/L (3.5-5.1) 01/20/20 04:56 Chloride 103 mmol/L (98-107) 01/20/20 04:56 Carbon Dioxide 24.9 mmol/L (21-32) 01/20/20 04:56 BUN 4 mg/dL (7-18) L 01/20/20 04:56 Creatinine 0.86 mg/dL (0.70-1.30) 01/20/20 04:56 Est GFR (MDRD) Af Amer > 60 (>60) 01/20/20 04:56 Est GFR (MDRD) Non-Af > 60 (>60) 01/20/20 04:56 Glucose 93 mg/dL (65-99) 01/20/20 04:56 Calcium 8.3 mg/dL (8.5-10.1) L 01/20/20 04:56 Corrected Calcium 9.5 mg/dL (8.5-10.1) 01/20/20 04:56 Magnesium 2.8 mg/dL (1.7-2.9) 01/20/20 04:56 Total Bilirubin 6.60 mg/dL (0.2-1.0) H 01/20/20 04:56 AST 94 Units/L (15-37) H 01/20/20 04:56 ALT 51 Units/L (12-78) 01/20/20 04:56 Alkaline Phosphatase 216 Units/L (46-116) H 01/20/20 04:56 Creatine Kinase 130 Units/L (39-308) 01/19/20 01:30 CK-MB (CK-2) 1.0 ng/mL (0-4.0) 01/19/20 01:30 CK/CKMB % Calc 0.8 % (<4) 01/19/20 01:30 Troponin I < 0.02 ng/mL (0-1.5) 01/19/20 01:30 Total Protein 6.8 g/dL (6.4-8.2) 01/20/20 04:56 Albumin 2.5 g/dL (3.4-5.0) L 01/20/20 04:56 Globulin 4.3 g/dL (2.5-4.5) 01/20/20 04:56 Albumin/Globulin Ratio 0.6 Ratio (1.1-2.1) L 01/20/20 04:56 Amylase 66 Units/L (25-115) 01/20/20 04:56 Lipase 414 Units/L (73-393) H 01/20/20 04:56 Specimen Type Clean catch urine 01/19/20 08:05 Urine Color Yellow (YELLOW) 01/19/20 08:05 Urine Appearance Clear (CLEAR) 01/19/20 08:05 Urine pH 8.0 (5.0 - 8.0) 01/19/20 08:05 Ur Specific [place] 1.010 (1.000-1.030) 01/19/20 08:05 Urine Protein Negative (NEGATIVE) 01/19/20 08:05 Urine Glucose (UA) Negative (NEGATIVE) 01/19/20 08:05 Urine Ketones Negative (NEGATIVE) 01/19/20 08:05 Urine Occult Blood Negative (NEGATIVE) 01/19/20 08:05 Urine Nitrite Negative (NEGATIVE) 01/19/20 08:05 Urine Bilirubin Negative (NEGATIVE) 01/19/20 08:05 Urine Urobilinogen Normal (NORMAL) 01/19/20 08:05 Ur Leukocyte Esterase Negative (NEGATIVE) 01/19/20 08:05 Urine Opiates Screen Negative (NEG=<300) 01/19/20 07:58 Urine Methadone Screen Negative (NEG=<300) 01/19/20 07:58 Ur Barbiturates Screen Negative (NEG=<200) 01/19/20 07:58 Ur Phencyclidine Scrn Negative (NEG=<25) 01/19/20 07:58 Ur Amphetamines Screen Negative (NEG=<1000) 01/19/20 07:58 U Benzodiazepines Scrn Negative (NEG=<200) 01/19/20 07:58 Urine Cocaine Screen Negative (NEG=<300) 01/19/20 07:58 U Marijuana (THC) Screen Negative (NEG=<50) 01/19/20 07:58 Ethyl Alcohol mg/dL < 3 mg/dL (0-19.9) 01/19/20 01:30 Influenza Type A (PCR) Negative (NEGATIVE) 01/19/20 01:46 Influenza Type B (PCR) Negative (NEGATIVE) 01/19/20 01:46 S. pyogenes (TEM-PCR) Not detected (NOT DETECT) 01/19/20 01:46 - Plan (1) Pancreatitis Status: Acute Qualifiers: Chronicity: acute Pancreatitis type: alcohol induced Acute pancreatitis complication: no infection or necrosis Qualified Code(s): K85.20 - Alcohol induced acute pancreatitis without necrosis or infection Plan: NPO. GENTLE IV HYDRATION, PAIN AND NAUSEA CONTROL. AMLABS, REPEAT AM AMYLASE AND LIPASE. CT CHEST/ABD AND PELVIS ON ADMISSION. GB US, COVID 19 COLLECTED IN ER ON ADMISSION (2) Acute cholecystitis Status: Acute (3) Fatty liver Status: Acute (4) Hematemesis Status: Acute Qualifiers: Nausea presence: with nausea Qualified Code(s): K92.0 - Hematemesis (5) Hepatomegaly Status: Acute (6) Hypokalemia Status: Acute
[2020-01-21] MEDS: D5W 1000 ML IV 1,000 ML IV SCH ×3 (00:50→17:52)
[2020-01-21] MEDS: PROTONIX INJ 40 MG VIAL 80 MG in NS 100 ML IV 80 ML IV SCH ×3 (02:45→23:17)
[2020-01-21] MEDS: LIBRIUM PO SCH ×3 (05:42→21:15)
[2020-01-21 06:16] LABS: BASOPHILS # (AUTO) 0.1 X10^3/uL (0.0-0.1); BASOPHILS % (AUTO) 1.2 % (0.2-1.0); EOSINOPHILS # (AUTO) 0.1 x10^3/uL (0.0-0.2); EOSINOPHILS % (AUTO) 1.8 % (0.9-2.9); HEMATOCRIT 35.1 % (42.0-54.0); HEMOGLOBIN 12.2 g/dL (13.5-18.0); LYMPHOCYTES # (AUTO) 1.3 X10^3/uL (1.3-2.9); LYMPHOCYTES % (AUTO) 27.9 % (21.0-51.0); MEAN CORPUSCULAR HEMOGLOBIN 33.7 pg (27.0-34.0); MEAN CORPUSCULAR HGB CONC 34.9 g/dL (33.0-35.0); MEAN CORPUSCULAR VOLUME 96.5 fL (80.0-100.0); MEAN PLATELET VOLUME 8.5 fL (7.4-11.0); MONOCYTES # (AUTO) 0.4 x10^3/uL (0.3-0.8); MONOCYTES % (AUTO) 9.7 % (0.0-13.0); NEUTROPHILS # (AUTO) 2.8 x10^3/uL (2.2-4.8); NEUTROPHILS % (AUTO) 59.4 % (42.0-75.0); PLATELET COUNT 115 X10^3/uL (150.0-450.0); RED BLOOD COUNT 3.63 X10^6/uL (4.7-6.0); WHITE BLOOD COUNT 4.6 X10^3/uL (3.6-10.0)
[2020-01-21 06:34] LABS: ALANINE AMINOTRANSFERASE 58 Units/L (12-78); ALBUMIN 2.7 g/dL (3.4-5.0); ALKALINE PHOSPHATASE 204 Units/L (46-116); AMYLASE 80 Units/L (25-115); ASPARTATE AMINO TRANSFERASE 111 Units/L (15-37); BLOOD UREA NITROGEN 4 mg/dL (7-18); CALCIUM 8.8 mg/dL (8.5-10.1); CARBON DIOXIDE 25.3 mmol/L (21-32); CHLORIDE 104 mmol/L (98-107); COR CA(FOR HYPOALB) 9.8 mg/dL (8.5-10.1); LIPASE 396 Units/L (73-393); SODIUM 138 mmol/L (136-145); TOTAL PROTEIN 7.3 g/dL (6.4-8.2); eGFR NON BLACK RACES > 60 (>60)
[2020-01-21] MEDS: K-RIDER 10 MEQ/NS 100 ML 10 MEQ/100 ML BAG IV PRN (07:05)
[2020-01-22] MEDS: PROTONIX INJ 40 MG VIAL 80 MG in NS 100 ML IV 80 ML IV SCH ×2 (00:47→09:16)
[2020-01-22] MEDS: D5W 1000 ML IV 1,000 ML IV SCH ×3 (00:47→08:14)
[2020-01-22] MEDS: LIBRIUM PO SCH ×2 (05:59→15:25)
[2020-01-22 06:31] LABS: BASOPHILS # (AUTO) 0.1 X10^3/uL (0.0-0.1); BASOPHILS % (AUTO) 1.2 % (0.2-1.0); EOSINOPHILS # (AUTO) 0.1 x10^3/uL (0.0-0.2); EOSINOPHILS % (AUTO) 2.4 % (0.9-2.9); HEMATOCRIT 33.7 % (42.0-54.0); HEMOGLOBIN 11.7 g/dL (13.5-18.0); LYMPHOCYTES # (AUTO) 1.2 X10^3/uL (1.3-2.9); LYMPHOCYTES % (AUTO) 27.5 % (21.0-51.0); MEAN CORPUSCULAR HGB CONC 34.9 g/dL (33.0-35.0); MEAN CORPUSCULAR VOLUME 97.4 fL (80.0-100.0); MEAN PLATELET VOLUME 8.7 fL (7.4-11.0); MONOCYTES # (AUTO) 0.5 x10^3/uL (0.3-0.8); MONOCYTES % (AUTO) 12.2 % (0.0-13.0); NEUTROPHILS # (AUTO) 2.5 x10^3/uL (2.2-4.8); NEUTROPHILS % (AUTO) 56.7 % (42.0-75.0); PLATELET COUNT 126 X10^3/uL (150.0-450.0); RED BLOOD COUNT 3.46 X10^6/uL (4.7-6.0); RED CELL DISTRIBUTION WIDTH 13.7 % (11.6-16.5); WHITE BLOOD COUNT 4.3 X10^3/uL (3.6-10.0)
[2020-01-22 07:00] LABS: ALANINE AMINOTRANSFERASE 54 Units/L (12-78); ALBUMIN 2.5 g/dL (3.4-5.0); ALKALINE PHOSPHATASE 174 Units/L (46-116); AMYLASE 85 Units/L (25-115); ASPARTATE AMINO TRANSFERASE 89 Units/L (15-37); BLOOD UREA NITROGEN 3 mg/dL (7-18); CALCIUM 8.7 mg/dL (8.5-10.1); CARBON DIOXIDE 23.8 mmol/L (21-32); CHLORIDE 106 mmol/L (98-107); COR CA(FOR HYPOALB) 9.9 mg/dL (8.5-10.1); CREATININE 0.97 mg/dL (0.70-1.30); LIPASE 293 Units/L (73-393); SODIUM 140 mmol/L (136-145); TOTAL PROTEIN 6.7 g/dL (6.4-8.2); eGFR NON BLACK RACES > 60 (>60)
[2020-01-22 12:44] VITALS: BP 97/67
[2020-01-22 13:38] VITALS: BMI 28.8
[2020-01-24 11:32] LABS: HEPATITIS B SURFACE ANTIGEN Negative (Negative)
== END 2020-01-22 14:15 | disposition home or self-care (01) | DRG 439 ==
LOC: ER 01:08 → MED/SURG 10:04
PROVIDERS: ADMIT Internal Medicine; ATTEND Internal Medicine
DX: K92.0 Hematemesis; R94.31 Abnormal electrocardiogram [ECG] [EKG]; K85.80 Other acute pancreatitis without necrosis or infection; E86.0 Dehydration; B27.00 Gammaherpesviral mononucleosis without complication; E87.6 Hypokalemia; R07.89 Other chest pain; K81.0 Acute cholecystitis